=== PATIENT | male | born 1955 | race Caucasian/White ===

== ENCOUNTER 2018-01-14 20:52 | Emergency (ER) | payer SELFPAY ==
[~2018-01-14] VITALS: Ht 172.7 cm; Wt 77.1 kg
[2018-01-14] MEDS ORDERED: NITROGLYCERIN PACKET 1 GM PACKET ONE (21:17)
[2018-01-14] MEDS ORDERED: ASPIRIN 325 MG TABLET ONE (21:17)
--- NOTE | 2018-01-14 21:25 | NUR ---
PT CAME IN WITH C/O CHEST PAIN/ WEAKNESS ON LEFT CHEST WALL SIDE STARTED THIS AFTERNOON. DENIES TRAUMA. DENIES EXPERIENCING THIS SYMPTOMS BEFORE. SEEN BY MD FOR EVAL. ELEVATED BP NOTED. IV ACCESS STARTED. BLOOD DRAWN FOR LABS. MEDICATED ORDERED. SAFETY AND COMFORT MEASURES PROVIDED. WILL MONITOR.
[2018-01-14 21:29] LABS: CALCIUM, SERUM 8.9 mg/dL (8.5-10.1)
[2018-01-14] MEDS ORDERED: NITROGLYCERIN PACKET 1 GM PACKET TD ONE (21:30)
[2018-01-14] MEDS ORDERED: ASPIRIN 325 MG TABLET PO ONE (21:30)
--- NOTE | 2018-01-14 21:30 | NUR ---
JANICE AT BS.
[2018-01-14 21:33] LABS: INR 0.89 (0.85-1.15)
[2018-01-14 21:36] LABS: BASOPHILS # (AUTO) 0.1 /CMM (0.0-0.2); BASOPHILS % (AUTO) 0.7 % (0.0-2.0); EOSINOPHILS # (AUTO) 0.3 /CMM (0.0-0.7); EOSINOPHILS % (AUTO) 2.3 % (0.0-6.0); HEMATOCRIT 49 % (39-51); HEMOGLOBIN 16.6 g/dL (13.5-17.5); LYMPHOCYTES # (AUTO) 3.2 /CMM (0.8-4.8); LYMPHOCYTES % (AUTO) 26.5 % (20.0-44.0); MEAN CORPUSCULAR HEMOGLOBIN 26 PG (26.0-33.0); MEAN CORPUSCULAR HGB CONC 34 g/dl (31.0-36.0); MEAN CORPUSCULAR VOLUME 76 fL (80-96); MONOCYTES # (AUTO) 0.7 /CMM (0.1-1.30); MONOCYTES % (AUTO) 5.6 % (2.0-12.0); NEUTROPHILS # (AUTO) 7.7 /CMM (1.8-8.9); NEUTROPHILS % (AUTO) 64.9 % (43.0-81.0); PLATELET COUNT (AUTO) 280 /CMM (150-450); RDW COEFFICIENT OF VARIATION 14.6 (11.5-15.0); RED BLOOD CELL COUNT(AUTO) 6.47 MIL/uL (4.5-6.0)
[2018-01-14 21:38] LABS: TROPONIN I 0.045 ng/mL (0.00-0.056)
[2018-01-14] MEDS ORDERED: ONDANSETRON HCL/PF 4 MG/2 ML VIAL ONE (21:42)
[2018-01-14] MEDS ORDERED: MORPHINE SULFATE INJ 4 MG/ML DISP.SYRIN ONE (21:43)
--- NOTE | 2018-01-14 21:45 | NUR ---
PT C/O CHEST PAIN. MD AWARE. ORDERS CARRIED OUT.
[2018-01-14] MEDS ORDERED: ONDANSETRON HCL/PF - ER 4 MG/2 ML VIAL IV ONE (22:00)
[2018-01-14] MEDS ORDERED: MORPHINE SULFATE INJ 2 MG/ML DISP.SYRIN IV ONE (22:00)
--- NOTE | 2018-01-14 22:11 | NUR ---
REPORT GIVEN TO CHRIS CURRIE FOR TELE ROOM 111-2.
--- NOTE | 2018-01-14 22:31 | NUR ---
Patient does not wish to proceed with medical care recommended by Dr. Gustafson. Patient given information related to possible complications, up to and including , which could occur as a result of leaving the hospital at this time. Patient verbalizes understanding of risks involved due to leaving against medical advice. Patient has signed AMA form.
--- NOTE | 2018-01-14 22:32 | NUR ---
IV removed. Catheter intact and site benign. Pressure and 4x4 applied to site. No bleeding noted.
[2018-01-14 22:33] VITALS: BP 159/101
[2018-01-14] MEDS ORDERED: hydrALAZINE HCL IV 20 MG VIAL IV PRN (23:00)
[2018-01-14] MEDS ORDERED: ACETAMINOPHEN 325 MG TABLET PO PRN (23:00)
[2018-01-14] MEDS ORDERED: MAGNESIUM HYDROXIDE 30 ML UDC PO PRN (23:00)
[2018-01-14] MEDS ORDERED: ZOLPIDEM TARTRATE 5 MG TABLET PO PRN (23:00)
[2018-01-14] MEDS ORDERED: HYDROCODONE/APAP 5/325MG 1 EACH TABLET PO PRN (23:00)
[2018-01-14] MEDS ORDERED: MORPHINE SULFATE INJ 2 MG/ML DISP.SYRIN IV PRN (23:00)
[2018-01-14] MEDS ORDERED: ONDANSETRON HCL/PF 4 MG/2 ML VIAL IVP PRN (23:00)
[2018-01-14] MEDS ORDERED: Z GUARD REMEDY 2 OZ OINT TP PRN (23:00)
[2018-01-14] MEDS ORDERED: NITROGLYCERIN 0.4 MG/TAB BOTTLE SL PRN (23:00)
[2018-01-15] MEDS ORDERED: ASPIRIN 81 MG TAB.CHEW PO SCH (09:00)
[2018-01-15] MEDS ORDERED: AMLODIPINE BESYLATE 10 MG TABLET PO SCH (09:00)
== END 2018-01-14 22:35 | disposition left against medical advice (07) ==
LOC: ER 20:53 → UNDOADMIN 22:10 → TELE-TD 22:10
DX: R07.9 Chest pain, unspecified (principal); F17.200 Nicotine dependence, unspecified, uncomplicated
CPT/HCPCS: 36415; 71045; 80048; 84484; 85025; 85730; 87081; 93005; 99285; A4606; Z7610; J2270; J2405

== ENCOUNTER 2022-09-30 02:38 | Emergency (ER) | payer MEDICARE, BC ==
[~2022-09-30] VITALS: Ht 170.2 cm; Wt 86.2 kg
[2022-09-30 03:51] VITALS: BP 173/98
--- NOTE | 2022-09-30 04:14 | NUR ---
PT IS NOWHERE TO BE FOUND. PT ELOPED
--- NOTE | 2022-09-30 04:15 | NUR ---
Patient eloped from facility. ER MD notified.
== END 2022-09-30 04:18 | disposition left against medical advice (07) ==
LOC: ER 02:45
DX: Z53.21 Procedure and treatment not carried out due to patient leaving prior to being seen by health care provider (principal)